=== PATIENT | female | born 1980 | race African-American/Black ===

== ENCOUNTER 2017-07-25 14:45 | Emergency (ER) | payer MEDICAID, OTHER ==
[~2017-07-25] VITALS: Ht 175.3 cm; Wt 86.0 kg
[2017-07-25] MEDS ORDERED: BACITRACIN ZINC OINT UDPKT TOP ONE (18:30)
[2017-07-25] MEDS ORDERED: KETOROLAC 30MG/ML VIAL IM ONE (18:30)
[2017-07-25 18:36] VITALS: BP 101/65
== END 2017-07-25 19:04 | disposition home or self-care (01) ==
LOC: ER 15:41
DX: T25.211A Burn of second degree of right ankle, initial encounter (principal); W86.1XXA Exposure to industrial wiring, appliances and electrical machinery, initial encounter; Y93.89 Activity, other specified; Y92.89 Other specified places as the place of occurrence of the external cause; Y99.8 Other external cause status; Z98.890 Other specified postprocedural states
CPT/HCPCS: 96372; 99283; J1885; Z7610